=== PATIENT | female | born 1990 | race Caucasian/White ===

== ENCOUNTER 2020-09-01 16:35 | Emergency (ER) | payer OTHER, SELFPAY ==
[2020-09-01 16:50] VITALS: BP 102/48; PULSE 102; RESP 18; TEMP 36.9; O2SAT 97
--- NOTE | 2020-09-01 17:07 | ED.GENADULT ---
HPI - General Adult General Chief complaint: Upper Respiratory Infection Stated complaint: headache chest pain Time Seen by Provider: 09/01/20 17:08 Source: patient Mode of arrival: ambulatory Limitations: no limitations History of Present Illness HPI narrative: 29-year-old female patient presents to the [facility] with complaints of cough and congestion for 2 days. Patient states she really came today because she is wanting a Covid test. Patient states she is 13 weeks . Denies any chest pain or shortness of breath. Denies fevers, body aches or chills. Patient states she was seen at [facility] emergency department yesterday and they diagnosed her with a viral illness and sent her home with Flonase which she states that she has not yet picked up. Patient states she did call her [employer] and she recommended to get her tested for COVID-19 and told her that she cannot return to work until she has been tested for COVID-19. Patient states that she thinks she might of had an exposure to her boyfriend son who also had symptoms but was never tested. Related Data Home Medications Medication Instructions Recorded Confirmed No Home Medications 09/01/20 09/01/20 Allergies Allergy/AdvReac Type Severity Reaction Status Date / Time No Known Drug Allergies Allergy Unknown Verified 11/02/18 12:25 Review of Systems Review of Systems: Narrative: CONSTITUTIONAL: Denies fever, chills, or sweats. EYES: Denies visual changes, redness, or discharge. ENT: Denies rhinorrhea, positive congestion, denies sore throat, or otalgia. CARDIOVASCULAR: Denies chest pain, palpitations, or edema. RESPIRATORY: Positive mild nonproductive cough, denies dyspnea. GASTROINTESTINAL: Denies abdominal pain, nausea, vomiting, or diarrhea. GENITOURINARY: Denies dysuria or hematuria. SKIN: Denies rash or itching. MUSCULOSKELETAL: Denies back pain, joint pain, or myalgia. NEUROLOGIC: Denies headache, numbness, or weakness. PSYCHIATRIC: Denies anxiety or depression. [facility] Past Medical History Medical History (Updated 09/01/20 @ 17:19 by VENU Rao) Fractures Left arm Social History Social History Gender identity (if verbalized by the patient): Female Comments At the time of my signature I agree with nursing past medical history, surgical, social, and family history. There is no relevant family history pertinent to the presenting complaint. Exam Narrative: Exam Narrative: GENERAL: Well-appearing, well-nourished, and in no acute distress. HEAD: Normocephalic, atraumatic. EYES: PERRLA and EOMI. ENT: Nares clear, no rhinorrhea or epistaxis. Mucous membranes moist. Posterior pharynx with no erythema, tonsil enlargement, exudates or lesions present. Bilateral TMs are clear with no erythema or foreign bodies in the canal. NECK: Supple. No lymphadenopathy CHEST: Clear to auscultation. No respiratory distress. Patient able talk in clear complete sentences. HEART: Regular rate and rhythm. No murmur heard. Normal peripheral pulses. ABDOMEN: Soft, nontender, nondistended, normal active bowel sounds. EXTREMITIES: Normal range of motion. No edema. SKIN: Warm, dry, no rash. NEURO: No focal deficits. Alert and oriented x3. Course Vital Signs Vital signs: Vital Signs Temperature 36.9 C 09/01/20 16:50 Pulse Rate 102 H 09/01/20 16:50 Respiratory Rate 18 09/01/20 16:50 Blood Pressure 102/48 L 09/01/20 16:50 Pulse Oximetry 97 09/01/20 16:50 Temperature 36.9 C 09/01/20 16:50 Pulse Rate 102 H 09/01/20 16:50 Respiratory Rate 18 09/01/20 16:50 Blood Pressure 102/48 L 09/01/20 16:50 Pulse Oximetry 97 09/01/20 16:50 Vital signs reviewed Medical Decision Making Differential Diagnosis Differential Diagnosis: Differential diagnosis: Allergic rhinitis, chronic sinusitis, tonsillitis, acute sinusitis, infectious mononucleosis, seasonal influenza, pertussis, diphtheria
== END 2020-09-01 17:32 | disposition home or self-care (01) ==
PROVIDERS: Emergency Provider Nurse Practitioner Family
DX: Z20.822 Contact with and (suspected) exposure to COVID-19 (principal)
CPT/HCPCS: 99211; G0463

== ENCOUNTER → 2020-09-03 07:05 | Outpatient (CLI) | payer OTHER, SELFPAY ==
[2020-09-03 17:58] LABS: SARS-CoV-2 RNA PCR Positive
== END ==
PROVIDERS: Visit Provider Nurse Practitioner Family
DX: U07.1 COVID-19 (principal)
CPT/HCPCS: C9803; U0003; U0005

== ENCOUNTER 2021-12-20 09:33 | Outpatient (CLI) | payer OTHER, SELFPAY ==
[2021-12-20 10:12] LABS: Appearance Urine Clear (Clear); Bilirubin Urine Negative (Negative); Color Urine Yellow (Yellow); Glucose Urine UA Negative (Negative); Ketones Urine Negative (Negative); Leukocyte Esterase Ur Trace LEU/UL (Negative); Nitrate Urine Negative (Negative); Protein Urine Negative (Negative); Urobilinogen Urine 0.2 mg/dL (<2.0); pH Urine 6.5 (5.0-9.0)
[2021-12-20 10:17] LABS: Bacteria Urine Trace /hpf; Mucus Urine Rare /lpf; Squamous Epithelial Cell Urine Few /hpf (Few); WBC Urine 0-3 /hpf
[2021-12-20 10:21] LABS: Add Urine Microscopic? YES; Blood Urine Trace-Intact (Negative)
== END 2021-12-20 09:34 | disposition home or self-care (01) ==
LOC: ANHLAB 09:40
DX: O23.43 Unspecified infection of urinary tract in pregnancy, third trimester (principal); Z3A.00 Weeks of gestation of pregnancy not specified
CPT/HCPCS: 81001

== ENCOUNTER 2023-12-26 18:55 | Emergency (ER) | payer OTHER, SELFPAY ==
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
[2023-12-26 19:03] VITALS: BP 125/59; PULSE 99; RESP 16; TEMP 37.6; O2SAT 100
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
== END 2023-12-26 19:56 | disposition home or self-care (01) ==
PROVIDERS: Emergency Provider Registered Nurse
DX: S00.83XA Contusion of other part of head, initial encounter (principal); Y04.8XXA Assault by other bodily force, initial encounter
CPT/HCPCS: 70150; 99213; G0463